=== PATIENT | female | born 1960 | race Caucasian/White ===

== ENCOUNTER 2017-03-10 19:35 | Emergency (ER) | payer OTHER ==
[~2017-03-10] VITALS: Ht 167.6 cm; Wt 63.5 kg
[~2017-03-10 19:35] MED LIST: DULO30CA2 PO; METH10TA2 PO
[2017-03-10 20:01] VITALS: BP 121/42
[2017-03-10] MEDS ORDERED: HYDROCODONE/APAP 10/325MG 1 EA TABLET ONE (20:14)
[2017-03-10] MEDS ORDERED: HYDROCODONE/APAP 10/325MG 1 EA TABLET PO ONE (20:30)
== END 2017-03-10 21:05 | disposition home or self-care (01) ==
LOC: ER 19:42
DX: L97.329 Non-pressure chronic ulcer of left ankle with unspecified severity (principal); F11.20 Opioid dependence, uncomplicated; G62.9 Polyneuropathy, unspecified; Z99.3 Dependence on wheelchair; G89.29 Other chronic pain; Z79.899 Other long term (current) drug therapy
CPT/HCPCS: 99282; A4606; Z7610